=== PATIENT | female | born 1980 | race Caucasian/White ===

== ENCOUNTER 2016-09-12 13:22 | Emergency (ER) | payer MEDICAID, OTHER ==
[~2016-09-12 13:22] MED LIST: ASC500 PO; DSS100 PO; FES300 PO; HYDR1TAB91 PO; IBUP-1152 PO
[2016-09-12 13:28] VITALS: BP 123/64; PULSE 118; RESP 22; O2SAT 100
[2016-09-12 13:32] VITALS: BP 123/64; PULSE 118; RESP 22; O2SAT 100
[2016-09-12] MEDS ORDERED: 0.9% Sodium Chloride 1,000 ML IV ONE ×2 (13:35→14:45)
--- NOTE | 2016-09-12 14:13 | ED.REPORT ---
HPI-General Illness Date of Service Sep 12, 2016 ED Provider: Carlos Persaud MD Patient is a 36 year old female who presents to the ED complaining of a fever ( as high as 103) onset 3 days ago. She spent 9 hours in 100+ degree weather at a concert on 4 days ago. Associated symptoms include general mild headache, nausea , and muscle cramps. She denies vomiting, rash, cough, abdominal pain, diarrhea , or any other symptoms. She took Ibuprofen 1.5 hrs ago. Her last period was 2-3 weeks ago. No neck stiffness. No known sick contacts. Her fever has now resolved. She has no other symptoms. She thinks that she is dehydrated. Nursing Notes Stated Complaint: FEVER,BLURRY VISION,CHILLS,SHAKING Chief Complaint: General Complaint Nursing Notes Reviewed: Yes Allergies: Coded Allergies: No Known Allergies (Verified , 09/12/16) Scheduled Ascorbic Acid-Expunged Drug, Do Not Renew! (Vitamin C-Expunged Drug, Do Not Renew!) 500 Mg Tablet 500 MG PO DAILY Ferrous Sulfate-Expunged Drug, Do Not Renew! (Feosol-Expunged Drug, Do Not Renew !) 325 Mg Tablet 325 MG PO DAILY Scheduled PRN Docusate Sod-Expunged Drug, Do Not Renew! (Docusate Sod-Expunged Drug, Do Not Renew!) 100 Mg Capsule 100 MG PO DAILY PRN PRN Hydrocod/APAP-Expunged, Do Not Renew! (Hydrocod/APAP-Expunged, Do Not Renew!) 1 Each Tablet 0 EA PO Q3 PRN PRN IBUPROFEN-Expunged Drug, Do Not Renew! (IBUPROFEN-Expunged Drug, Do Not Renew!) 800 Mg Tablet 800 MG PO Q6 PRN PRN General Time Seen by : 13:35 Chief Complaint Fever Hx Obtained From: Patient Arrived By: Walk-in Sudden in Onset?: Yes Onset Occurred: 3 days ago Symptom Duration: Since onset Past Medical History Past Medical History None reported Past Surgical History None reported Smoking History Unknown if Ever Smoker Ambulatory Status Independent Review of Systems +muscle cramps Full Review of Systems Constitutional: Reports: Fever Respiratory: Denies: Non-productive cough GI: Reports: Nausea, Denies: Abdominal pain, Diarrhea, Vomiting Skin: Denies Rash Neurologic: Reports: Headache Complete sys rev & neg: except as marked. Physical Exam Vital Signs Vital Signs Date Time Temp Pulse Resp B/P Pulse Ox O2 Delivery O2 Flow Rate FiO2 09/12/16 15:01 95 16 127/70 100 Room Air 09/12/16 13:32 36.9 118 22 123/64 100 Room Air 09/12/16 13:28 36.9 118 22 123/64 100 Room Air Initial VS: Reviewed Head / Eyes: Atraumatic, Normocephalic Respiratory: Breath sounds normal, Clear to auscultation, No respiratory distress Cardiovascular: Regular rate & rhythm, Heart sounds normal, Intact distal pulses Abdomen / GI: Soft, Non-tender Neurologic: Alert, Oriented, Nonfocal Psychiatric: Mood/affect normal, Behavior normal, Normal thought content General/Constitutional: Awake, Alert, No acute distress, Well developed Mouth: Positive: Mucous membranes dry Neck: Atraumatic, Supple, No meningismus, Non-tender Skin: Warm, Dry Rash / Lesion Notes: Sun burn on neck, back, anterior chest wall, and face Interpretation & Diagnostics Lab Results Interpretation Test 09/12/16 13:52 Hold Purple Top Tube Received (Received) Hold Blue Top Tube Received (Received) Hold [place] Top Tube Received (Received) Re-Eval/Medical Decision Med Decision/Clinical Course Patient is a 36 year old female who presents to the ED complaining of a fever ( as high as 103) onset 3 days ago. She spent 9 hours in 100+ degree weather at a concert on 4 days ago. Associated symptoms include general mild headache, nausea , and muscle cramps. She denies vomiting, rash, cough, abdominal pain, diarrhea , or any other symptoms. She took Ibuprofen 1.5 hrs ago. Her last period was 2-3 weeks ago. No neck stiffness. No known sick contacts. Her fever has now resolved. She has no other symptoms. She thinks that she is dehydrated. Upon arrival in the emergency department the patient appears dehydrated and is tachycardic with otherwise nontoxic in appearance and in no apparent distress. She was treated with IV fluids and Zofran and reported dramatic improvement in her symptoms. Her tachycardia resolved. She remained without fever. She has no meningismus or neck stiffness. Her presentation is not suggestive of acute bacterial meningitis. There are no findings suggestive of UTI or pneumonia. While she reports that she has had fevers I am not been able to demonstrate any elevation in her temperature here in the emergency room. She does have sunburn and is dehydrated and this is not surprising given that she was standing and direct sunlight and 90+ degree temperatures for over 8 hours. She reports dramatic improvement and at this time I feel that she is appropriate for discharge. Prior to discharge follow-up and return precautions were reviewed in detail with the patient who verbalized understanding and agreement with the plan. The patient was discharged in stable condition. Time of Eval: 14:49 Re-Evaluation/Progress Note: Discussed plan for discharge. Patient understands and agrees with plan. All questions addressed at this time. Counseled Regarding: Diagnosis, Lab results, Need for follow-up, When/why to return to ED Discharge & Departure Primary Impression: Dehydration Additional Impressions: Sunburn Heat cramp Encounter type: initial encounter Qualified Code: T67.2XXA - Heat cramp, initial encounter Headache Headache type: unspecified Headache chronicity pattern: unspecified pattern Intractability: not intractable Qualified Code: R51 - Headache Fatigue Fatigue type: unspecified Qualified Code: R53.83 - Other fatigue Disposition: Home Discharge Condition All VS Reviewed: Yes Condition: Improved Additional Instructions: Thank you for seeking care at the emergency room. It is difficult for us to make definitive diagnoses in the ED but we believe that you are experiencing dehydration Our primary goal today in the ED was to evaluate you for any life-threatening conditions. Your evaluation was reassuring. You should follow-up with your primary doctor in the next week. Drink plenty of clear fluids. You should return to the ED immediately if you develop fevers, vomiting, cough, shortness of breath, chest pain, lightheadedness, weakness, neck stiffness, rash , dysuria, or any other concerning signs or symptoms. Thank you for letting us partake in your care today. Referrals: Lux Brambila MD (PCP) Scribe Attestation Portions of this note were transcribed by Renetta Vega. I, Dr. Persaud personally performed the history, physical exam and medical decision-making; I reviewed and confirmed the accuracy of the information in the transcribed note. Signed by: Renetta Vega 09/12/16, 1450 copies to: Lux Brambila MD, Beck O MD Sep 12, 2016 14:13 RENETTA VEGA Sep 12, 2016 14:20
[2016-09-12 15:01] VITALS: BP 127/70; PULSE 95; RESP 16; O2SAT 100
[2016-09-12 15:46] VITALS: BP 125/64; PULSE 95; RESP 16; O2SAT 100
== END 2016-09-12 15:51 | disposition home or self-care (01) ==
LOC: SED 13:22
DX: T67.2XXA Heat cramp, initial encounter (principal); X30.XXXA Exposure to excessive natural heat, initial encounter; Y93.9 Activity, unspecified; Y92.9 Unspecified place or not applicable; Y99.8 Other external cause status; L55.9 Sunburn, unspecified; E86.0 Dehydration; R53.83 Other fatigue; R51 Headache; R11.0 Nausea
CPT/HCPCS: 81025; 96360; 99284; J7030